=== PATIENT | male | born 1980 | race Asian ===

== ENCOUNTER 2018-03-28 11:08 | Emergency (ER) | payer MEDICAID, OTHER | END 2018-03-28 12:26 | disposition home or self-care (01) | LOC: FTE 12:26 | DX: T52.8X1A Toxic effect of other organic solvents, accidental (unintentional), initial encounter (principal) | CPT/HCPCS: 99282; Z7502 ==

== ENCOUNTER 2018-07-02 09:31 | Emergency (ER) | payer MEDICAID ==
[2018-07-02] MEDS: IBUPROFEN 600 MG TAB PO (10:06)
== END 2018-07-02 10:13 | disposition home or self-care (01) ==
LOC: FTE 09:31
DX: J00 Acute nasopharyngitis [common cold] (principal); R40.2412 Glasgow coma scale score 13-15, at arrival to emergency department
CPT/HCPCS: 99282; Z7502